=== PATIENT | female | born 1945 | race Caucasian/White ===

== ENCOUNTER 2022-11-30 10:43 | Outpatient (AMB) | payer BC, SELFPAY ==
--- NOTE | 2022-11-30 10:50 | A.SPINEOV_ITS ---
Intake Intake Visit Reasons: Degenerative disc disease Intake Note: Mrs. Adorno is here today c/o low back pain. MRI done @ [facility]. [employer] Required: No Assessment & Plan Assessment & Plan (1) Neck pain: Code(s): M54.2 - Cervicalgia Plan Dear Yang Thank you for referring Mrs Adorno to our office today. She is a very nice 77-year-old female who presents today for evaluation of posterior neck pain. It started earlier this year, got worse at 1 point and then eventually, gradually just started to go away over time. She would take Motrin in use heat and these things seem to ease the discomfort. Right now she does not have much in the way of the discomfort that she had earlier. She has no pain she radiating down her arms no myelopathic complaints etc.. She is here today to get some information about her MRI showing a degenerative disc at C5-6 and some slight slight arthritis at C4-5. PMH: History of shoulder rotator cuff surgery, bowel resection, osteoporosis, thyroid disease Social hx: She does not smoke Medications: Levothyroxine, metoprolol Allergies: Sulfa, and she is sensitive to Demerol drugs Physical exam: Awake alert oriented, neuro exam is intact, normal reflexes, normal gait Imaging review: Cervical MRI done at [facility] shows a fairly collapsed disc at C5-6 with foraminal stenosis bilaterally. She has a slight spondylolisthesis at C4-5. There is no cord compression. No cord signal change seen. Impression: 77-year-old female presents with posterior neck pain almost in the interscapular area that has what look like it is down degenerative disc findings at C5-6 and a slight spondylolisthesis at C4-5. These appear to be normal age- related changes, I do not think the had anything to do necessarily with her posterior neck pain which was low in the cervical upper thoracic region. I suspect she had a muscular strain in a just ran its own course and will receive on the MRI just some baseline arthritic changes. She certainly does not need any surgery. She was glad to hear that. She will come back to see us if she develops any more concerning symptoms. Thank you for allowing us to care for your patient. The total time spent with this visit with this patient was 45 minutes reviewing history, physical exam, cervical spine imaging review, and implementation of treatment plan or further diagnostic testing Carlos Abreu MD,PhD [facility] Coding Level of Care Code New Pt Level 4 (53302) Diagnoses Neck pain M54.2
== END 2022-11-30 12:14 | disposition home or self-care (01) ==
PROVIDERS: PCP Family Medicine; Referring Provider Physician Assistant; Visit Provider Physician Assistant
DX: M54.2 Cervicalgia (principal)
CPT/HCPCS: 99204

== ENCOUNTER → 2022-11-30 10:43 | Outpatient (BNVA) | payer BC, SELFPAY | PROVIDERS: PCP Family Medicine; Visit Provider Physician Assistant ==